=== PATIENT | female | born 1970 | race Caucasian/White ===

== ENCOUNTER 2018-06-22 18:35 | Emergency (ER) | payer MEDICAID ==
[~2018-06-22] VITALS: Ht 160 cm; Wt 77.1 kg
[2018-06-22 18:37] VITALS: Ht 160 cm; Wt 77.1 kg
[2018-06-22 19:51] LABS: BASOPHIL % 0.5 % (0-2); CALCIUM 9.2 mg/dL (8.5-10.1); CARBON DIOXIDE 22.7 mmol/L (21-32); CHLORIDE SERUM 106 mmol/L (98-107); GFR1 > 60 mL/min; GLUCOSE SERUM 82 mg/dL (74-106); PLATELET COUNT 293 x10^3mcL (130-400); POTASSIUM SERUM 3.9 mmol/L (3.5-5.1); RED CELL DISTRIBUTION WIDTH 12.5 % (11.5-14.5); SODIUM SERUM 139 mmol/L (136-145)
[2018-06-22 19:55] LABS: ALBUMIN 3.6 g/dL (3.4-5.0); ALKALINE PHOSPHATASE 102 U/L (46-116); ALT/SGPT 39 U/L (14-59); AST/SGOT 21 U/L (15-37); BILIRUBIN TOTAL 0.34 mg/dL (0.20-1.00); LIPASE 132 IU/L (73-393); TOTAL PROTEIN, SERUM 8.1 g/dL (6.4-8.2)
[2018-06-22 22:40] VITALS: BP 106/58
== END 2018-06-22 22:40 | disposition home or self-care (01) ==
LOC: ED 18:35
PROVIDERS: Emergency Medicine
DX: R07.89 Other chest pain (principal); R10.11 Right upper quadrant pain; R10.30 Lower abdominal pain, unspecified; R06.4 Hyperventilation
CPT/HCPCS: 36415; Q0092

== ENCOUNTER 2019-05-14 22:50 | Emergency (ER) | payer MEDICAID ==
[~2019-05-14] VITALS: Ht 157.5 cm; Wt 88.9 kg
[2019-05-14 23:01] VITALS: Ht 157.5 cm; Wt 88.9 kg
[2019-05-15 02:07] VITALS: BP 113/61
== END 2019-05-15 02:07 | disposition home or self-care (01) ==
LOC: ED 22:50
DX: R07.89 Other chest pain (principal); R51 Headache; R20.2 Paresthesia of skin; M54.2 Cervicalgia; R06.02 Shortness of breath; Z90.49 Acquired absence of other specified parts of digestive tract
CPT/HCPCS: J1885